=== PATIENT | female | born 1955 | race Caucasian/White ===

== ENCOUNTER 2017-04-07 07:26 | Outpatient (CLI) | payer OTHER ==
[2017-04-07 08:07] LABS: eGFR (African) > 60; eGFR (Non-African) > 60
== END 2017-04-07 07:27 ==
LOC: LAB 07:26
PROVIDERS: ATTEND Family Medicine
DX: Z00.00 Encounter for general adult medical examination without abnormal findings (principal)
CPT/HCPCS: 36415; 80053; 80061

== ENCOUNTER 2017-04-28 10:08 | Outpatient (CLI) | payer SELFPAY ==
[2017-04-28 10:23] LABS: eGFR (African) > 60; eGFR (Non-African) > 60
[2017-04-28 10:29] LABS: MEAN CORPUSCULAR HEMOGLOBIN 31.2 pg (28.0-34.0); MEAN CORPUSCULAR VOLUME 92.6 fl (80.0-100.0)
[2017-04-28 10:47] LABS: EOSINOPHILS % 1 % (0-7); MONOCYTES % 3 % (0-11); SEGMENTED NEUTROPHILS % 92 % (39-79)
== END 2017-04-28 10:10 ==
LOC: LABRHC 10:08
PROVIDERS: ATTEND Family Medicine
DX: J10.1 Influenza due to other identified influenza virus with other respiratory manifestations (principal); J18.9 Pneumonia, unspecified organism
CPT/HCPCS: 80048; 85025